=== PATIENT | female | born 1970 | race American Indian/Alaskan Native ===

== ENCOUNTER 2021-05-09 07:46 | Day surgery (SDC) | payer MEDICARE ==
[2021-05-09] MEDS ORDERED: SODIUM CHLORIDE 0.9% 500 ML 500 ML IV SCH (09:00)
--- NOTE | 2021-05-09 09:41 | Short Stay Summary ---
Short Stay Documentation Date of service: 05/09/21 Narrative H&P: The patient is a 51-year-old female with a history of end-stage renal disease who is currently on hemodialysis through a right arm arteriovenous graft. She presents with complaints of a thrombosed arteriovenous graft and is in need of a diagnostic. Kyle with possible intervention. She denies any history of prolonged bleeding or pain during dialysis. She has been given the risk, benefits, and alternative procedures and has consented to the procedure. - History H&P: obtained from office Past Medical History: anemia, diabetes, dialysis, ESRD, hypertension, hyperlipidemia, other (asthma) Past Surgical History: Other (Creation of right arm AVG, Creation of Left Arm AVG) - Allergies and Medications Current Medications: Allergies morphine Allergy (Verified 05/09/21 08:21) Itching Active Medications Sodium Chloride (Nacl 0.9% 500 Ml) 500 mls @ 50 mls/hr IV DIRECT SOLEDAD - Physical exam General appearance: no acute distress Lungs: Normal air movement Heart: Regular rate Gastrointestinal: normal Female Genitourinary: deferred Rectal Exam: deferred Extremities: abnormal (Right Arm AV Graft without pulse or thrill) - Brief post op/procedure progress note Date of procedure: 05/09/21 Pre-op diagnosis: Complications of Dialysis Access Post-op diagnosis: same Procedure: 1. Access Right Arm Arteriovenous Graft with 7 Bulgarian Sheath Venous 2. Access Right Arm Arteriovenous Graft with 6 Bulgarian Sheath Arterial 3. Diagnostic Fistulagram with Central Venogram 4. Percutaneous Mechanical Thrombectomy of Right Arm Arteriovenous Graft with Prospecting Driller Helper Device, 6 Bulgarian MP Guide Catheter, and Yjtt-hkg-Phxs Luanne 5. Angioplasty of Right Arm Arteriovenous Graft with 8 x 80 [place] Balloon in the Venous Outflow and 9 x 60 [place] Balloon in the Arterial Inflow 6. Catheter in Right Axillary Artery 7. Diagnostic Right Upper Extremity Angiogram 8. Radiologic Supervision with Interpretation 9. Monitored Moderate Sedation (Total Anesthesia Time: 56 Minutes) Anesthesia: local, other (Monitored Moderate Sedation) Surgeon: KEON DURANT Estimated blood loss: minimal Pathology: none Condition: stable - Disposition Condition at discharge: Good Disposition: 01 HOME / SELF CARE / HOMELESS Short Stay Discharge Plan Activity: other (No heavy lifting with right arm. Remove the sutures by pulling the longer of the 2 strings in dialysis tomorrow.) Wound: remove dressing (Tomorrow at dialysis) Forms: AVG Arteriogram D/Celioruction
[2021-05-09] MEDS ORDERED: HEPARIN/NS 5000 UNIT/500ML 1,000 ML IR ONE (11:30)
[2021-05-09] MEDS ORDERED: LIDOCAINE (2%) 20 MG/1 ML VIAL 20 ML MDV INFILTRATI ONE (11:31)
[2021-05-09] MEDS: fentaNYL 100 MCG/2 ML INJ ONE ×3 (12:05→12:20)
[2021-05-09] MEDS: MIDAZOLAM 2 MG/2 ML INJ ONE ×4 (12:05→12:28)
[2021-05-09] MEDS ORDERED: HEPARIN 10,000 UNITS/10 ML VIAL ONE ×2 (12:13→12:57)
[2021-05-09] MEDS ORDERED: fentaNYL 100 MCG/2 ML INJ ONE (12:43)
[2021-05-09 14:09] VITALS: BP 153/72
--- NOTE | 2021-05-09 15:38 | Operative Report ---
Operative Report Operative Report: Date of Procedure: 05/09/2021 Pre-operative Diagnosis: Complications of Dialysis Access Post-operative Diagnosis: Same Procedure(s): 1. Ultrasound-Guided Access Right Arm Arteriovenous Graft with 7 Malagasy Sheath Venous 2. Access Right Arm Arteriovenous Graft with 6 Malagasy Sheath Arterial 3. Diagnostic Fistulagram with Central Venogram 4. Percutaneous Mechanical Thrombectomy of Right Arm Arteriovenous Graft with Shelver Device, 6 Malagasy MP Guide Catheter, and Zdrk-riu-Ouzi Luanne 5. Angioplasty of Right Arm Arteriovenous Graft with 8 x 80 [place] Balloon in the Venous Outflow and 9 x 60 [place] Balloon in the Arterial Inflow 6. Catheter in Right Axillary Artery 7. Diagnostic Right Upper Extremity Angiogram 8. Radiologic Supervision with Interpretation 9. Monitored Moderate Sedation (Total Anesthesia Time: 56 Minutes) Surgeon: Tyrese Ngo M.D. Alliance Consultant: Tamara Anesthesia: Local/Monitored Moderate Sedation Total Anesthesia Time: 56 Minutes EBL: Minimal Counts: Correct Complications: None Condition: Stable Specimen: None Indication: The patient is a 51-year-old female with a history of end-stage renal disease who is currently on hemodialysis through a right arm loop graft. She presented with a thrombosed graft and requires a diagnostic fistulogram with possible intervention. She was given the risk, benefits, and alternative procedures and consented to the procedure. Angiographic Findings: The diagnostic fistulogram revealed thrombus throughout the graft. The graft was diffusely stenotic with stenosis ranging from 50 to 75%. There was thrombus extending into the distal axillary vein with approximately 75% stenosis of the axillary vein. The central venous system was patent without evidence of flow- limiting stenosis. The diagnostic right upper extremity angiogram reveals that the patient's graft originates from a high takeoff of the radial artery. There was thrombus throughout the arterial inflow of the graft. There was approximately 70% stenosis of the arterial inflow of the graft including the arterial anastomosis. After intervention there was no evidence of distal emboli at the completion of the case. There was a small amount of residual thrombus at the arterial inflow as well as a small amount and a branch of the axillary vein. The graft was patent with approximately 20% stenosis within a small area of the cannulation zone near the venous outflow however the remainder of the graft appeared to be patent with approximately 15% residual stenosis. The axillary vein was patent with less than 15% residual stenosis. Description of Procedure: The patient was brought to the [facility] and laid in supine position. After timeout was performed the right arm was prepped and draped in normal sterile fashion. Ultrasound was used to identify the graft, near the arterial anastomosis, and lidocaine was used to anesthetize the skin and soft tissue overlying the graft. A 21-gauge micropuncture needle was used to access the graft towards the venous outflow using ultrasound guidance. A 0.018 micropuncture wire was advanced to the graft and after removing the needle a 7 Malagasy sheath was placed by Seldinger technique. A diagnostic fistulogram central venogram was then performed with the previously described findings. I advanced a vertebral catheter and 0.035 Bentson wire through the graft and into the central venous system. At this point I systemically heparinized the patient with 5000 units of heparin IV. I used the cell cleaner device to morcellate the thrombus within the graft and axillary vein and then used a 6 Malagasy multipurpose catheter to aspirate the thrombus. The follow-up fistulogram revealed minimal residual thrombus however there were multiple areas of stenosis throughout the graft and axillary vein. I reinserted the Bentson wire and performed angioplasty of the areas of stenosis using an 8 x 80 [place] Balloon which resulted in less than 15% residual stenosis throughout the majority of the graft however there was a short segment which had approximately 20% residual stenosis secondary to continuous access in this area. I then anesthetized the skin and soft tissue overlying the graft, near the venous outflow, and accessed the graft using a 21-gauge micropuncture needle towards the arterial inflow. I advanced a 0.018 micropuncture wire into the graft and after removing the needle placed a 6 Malagasy sheath by secondary technique. I advanced the Bentson wire vertebral catheter into the axillary artery and performed a diagnostic angiogram with the previously described findings. I reinserted the Bentson wire and then advanced an [id number] Luanne into the axillary artery, over the wire, and then after inflating the balloon pulled the Luanne back into the graft pulling the plug of thrombus within the arterial inflow back into the graft. I then used the 6 Malagasy multipurpose guide catheter to aspirate thrombus from the arterial inflow of the graft. I advanced a Bentson wire back into the axillary artery and then performed angioplasty of the arterial inflow of the graft using a 9 x 60 [place] Balloon which resulted in less than 15% residual stenosis, throughout the arterial inflow of the graft, however there was some residual thrombus within the arterial inflow of the graft. I advanced a 6 Malagasy multipurpose guide catheter and was able to aspirate the majority of the residual thrombus however a small amount remained on either the anterior posterior wall however this was not flow-limiting. I readvanced the vertebral catheter into the axillary artery and performed a final angiogram which revealed no evidence of distal thrombus, brisk flow of contrast throughout the graft, a small amount of residual thrombus within the arterial inflow, the areas of stenosis as previously described, and a small amount of thrombus within a segment of the axillary vein. At this point I will catheters and wires were removed and 2-0 Ethilon slipknot fashion was used to close each entry site after removing the sheath. Sterile dressings were then applied to the entry sites and the patient was taken to the recovery area in stable condition.
== END 2021-05-09 14:30 | disposition home or self-care (01) ==
LOC: CATHLABREC 07:46
PROVIDERS: ATTEND Surgery Vascular Surgery
DX: T82.868A Thrombosis due to vascular prosthetic devices, implants and grafts, initial encounter (principal); N18.6 End stage renal disease; Z87.891 Personal history of nicotine dependence; Z79.899 Other long term (current) drug therapy; Z98.890 Other specified postprocedural states; Y83.8 Other surgical procedures as the cause of abnormal reaction of the patient, or of later complication, without mention of misadventure at the time of the procedure
CPT/HCPCS: 36415; 36905; 80048; 99156; 99157; C1725; C1757; C1769; C1887; C1894; J1644; J2250; J3010; J3490; J7040; Q9967

== ENCOUNTER 2021-12-31 09:41 | Day surgery (SDC) | payer MEDICARE ==
[2021-12-31] MEDS ORDERED: SODIUM CHLORIDE 0.9% 500 ML 500 ML IV SCH (11:00)
--- NOTE | 2021-12-31 11:24 | Short Stay Summary ---
Short Stay Documentation Date of service: 12/31/21 Narrative H&P: The patient is a 51-year-old female with a history of end-stage renal disease who was on hemodialysis through a right arm arteriovenous graft. She presents with complaints of "pulling clots" while on dialysis and requires a diagnostic fistulogram with possible intervention. She was given the risk, benefits, and alternative procedures and consented to the procedure. - History Past Medical History: anemia, diabetes, dialysis, ESRD, hypertension, hyperlipidemia Past Surgical History: Other (Creation of right arm arteriovenous graft, multiple percutaneous mechanical thrombectomy of left arm AV graft) Social history: no significant social history - Allergies and Medications Current Medications: Allergies morphine Allergy (Verified 12/31/21 10:25) Itching nickel Allergy (Verified 12/31/21 10:53) Rash Home Medications Medication Instructions Recorded Confirmed Last Taken Type Apixaban [Eliquis] 5 mg PO BID 12/31/21 12/31/21 12/30/21 History 5 mg AtorvaSTATin [Lipitor] 40 mg PO DAILY 12/31/21 12/31/21 12/30/21 History 40 mg FLUoxetine [PROzac] 3 tab PO DAILY 12/31/21 12/31/21 12/30/21 History 3 tab Gabapentin 300 mg PO BID 12/31/21 12/31/21 12/30/21 History 300 mg HYDROcodone/APAP 5-325 [Morris 1 tab PO PRN PRN 12/31/21 12/31/21 12/26/21 History 5-325 mg TAB] 1 tab Insulin NPH Human Isophane 15 unit SQ HS 12/31/21 12/31/21 12/30/21 History [HumuLIN N] 15 units Insulin NPH Human Isophane 18 unit SQ QAM 12/31/21 12/31/21 12/30/21 History [Humulin N] 18 units Metoprolol [Lopressor TAB] 100 mg PO DAILY 12/31/21 12/31/21 12/31/21 07:00 History 100 mg NIFEdipine [Nifedipine ER] 60 mg PO BID 12/31/21 12/31/21 12/31/21 07:00 History 60 mg Ondansetron [Zofran ODT TAB] 4 mg PO PRN PRN 12/31/21 12/31/21 12/29/21 History 4 mg Pantoprazole [Protonix TAB] 40 mg PO BID 12/31/21 12/31/21 12/30/21 History 40 mg Sevelamer Carbonate [Renvela] 3 tab PO AC 12/31/21 12/31/21 12/30/21 History 3 tab hydrALAZINE [Apresoline TAB] 10 mg PO BID 12/31/21 12/31/21 12/31/21 07:00 History 10 mg Active Medications Sodium Chloride (Nacl 0.9% 500 Ml) 500 mls @ 50 mls/hr IV DIRECT SOLEDAD - Physical exam General appearance: no acute distress Lungs: Normal air movement Heart: Regular rate Gastrointestinal: normal Female Genitourinary: deferred Rectal Exam: deferred Extremities: abnormal (Right arm arteriovenous graft with palpable thrill and slight pulsatility) - Brief post op/procedure progress note Date of procedure: 12/31/21 Pre-op diagnosis: Complications of Dialysis Access Post-op diagnosis: same Procedure: 1. Access Right Arm AV Graft with 7 Japanese Sheath Venous 2. Diagnostic Fistulagram with Central Venogram 3. Angioplasty of Right Arm Arteriovenous Graft with 8 x 100 [place] Balloon 4. Radiologic Supervision with Interpretation 5. Monitored Moderate Sedation (Total Anesthesia Time: 12 Minutes) Anesthesia: local, other (Monitored Moderate Sedation) Surgeon: KEON DURANT Estimated blood loss: minimal Pathology: none Condition: stable - Disposition Condition at discharge: Good Disposition: 01 HOME / SELF CARE / HOMELESS Short Stay Discharge Plan Activity: no restrictions Wound: remove dressing (In 24 hours)
[2021-12-31] MEDS ORDERED: SODIUM CHLORIDE 0.9% 500 ML 500 ML ONE (11:36)
[2021-12-31] MEDS ORDERED: MIDAZOLAM 2 MG/2 ML INJ ONE (11:54)
[2021-12-31] MEDS ORDERED: fentaNYL 100 MCG/2 ML INJ ONE (11:55)
[2021-12-31] MEDS ORDERED: LIDOCAINE (2%) 20 MG/1 ML VIAL 20 ML MDV INFILTRATI ONE (11:59)
[2021-12-31] MEDS ORDERED: HEPARIN/NS 5000 UNIT/500ML 500 ML IR ONE (12:05)
--- NOTE | 2021-12-31 12:36 | Operative Report ---
Operative Report Operative Report: Date of Procedure: 12/31/2021 Pre-operative Diagnosis: Complications of Dialysis Access Post-operative Diagnosis: Same Procedure(s): 1. Access Right Arm AV Graft with 7 Australian Sheath Venous 2. Diagnostic Fistulagram with Central Venogram and Arterial Reflux 3. Angioplasty of Right Arm Arteriovenous Graft with 8 x 100 [place] Balloon 4. Radiologic Supervision with Interpretation 5. Monitored Moderate Sedation (Total Anesthesia Time: 16 Minutes) Surgeon: Tyrese Ngo M.D. Medical Physics Researcher: None Anesthesia: Local/Monitored Moderate Sedation Total Anesthesia Time: 12 Minutes EBL: Minimal Counts: Correct Complications: None Condition: Stable Specimen: None Indication: The patient is a 51-year-old female with a history of end-stage renal disease who is currently on hemodialysis through a right arm arteriovenous graft. She presents with complaints of "pulling clots" while on dialysis. She is in need of a diagnostic fistulogram and possible intervention. She was given the risk, benefits, and alternative procedures and consented to the procedure. Angiographic Findings: The diagnostic fistulogram revealed the graft including the cannulation zone was patent without evidence of flow-limiting stenosis. There was approximately 75 to 80% stenosis in the axillary vein. The central venous system was patent without evidence of flow-limiting stenosis. Contrast was refluxed into the arterial inflow which demonstrated approximately 35 to 40% stenosis near the arterial anastomosis however this was not flow-limiting. After intervention the venous outflow of the fistula was patent with less than 15% residual stenosis. Description of Procedure: The patient was brought to the [facility] and laid in supine position. After timeout was performed her right arm was prepped and draped in normal sterile fashion. Lidocaine was used anesthetize the skin and soft tissue, overlying the graft, near the arterial inflow and a 21-gauge micropuncture needle was used access the graft towards the venous outflow. A 0.018 micropuncture wire was advanced into the graft and after removing the needle a 7 Australian sheath was placed by Seldinger technique. A diagnostic fistulogram with central venogram was then performed with the previously described findings. Pressure was held on the graft to allow contrast refluxed back into the arterial inflow with the previously described findings. I advanced a 0.035 J-wire into the central venous system and then performed angioplasty of the areas of stenosis using an 8 x 100 [place] Balloon. The follow-up fistulogram demonstrated less than 15% residual stenosis and brisk flow of contrast throughout the system. At that point the balloon and wire were removed followed by removing the sheath. Manual pressure was held until hemostasis was achieved. Once hemostasis was achieved a sterile dressing was applied and the patient was transported to the recovery area in stable condition.
[2021-12-31 13:02] VITALS: BP 134/66
== END 2021-12-31 13:15 | disposition home or self-care (01) ==
LOC: CATHLABREC 09:41
PROVIDERS: ATTEND Surgery Vascular Surgery
DX: T82.898A Other specified complication of vascular prosthetic devices, implants and grafts, initial encounter (principal); I12.0 Hypertensive chronic kidney disease with stage 5 chronic kidney disease or end stage renal disease; E11.22 Type 2 diabetes mellitus with diabetic chronic kidney disease; N18.6 End stage renal disease; K21.9 Gastro-esophageal reflux disease without esophagitis; M19.90 Unspecified osteoarthritis, unspecified site; F32.9 Major depressive disorder, single episode, unspecified; F41.9 Anxiety disorder, unspecified; D64.9 Anemia, unspecified; Z88.5 Allergy status to narcotic agent; Z88.8 Allergy status to other drugs, medicaments and biological substances; Z79.899 Other long term (current) drug therapy; Z79.4 Long term (current) use of insulin; Z87.891 Personal history of nicotine dependence; Z98.890 Other specified postprocedural states; Y82.8 Other medical devices associated with adverse incidents; Y92.89 Other specified places as the place of occurrence of the external cause
CPT/HCPCS: 36415; 36902; 80048; 99156; C1725; C1894; J1644; J2250; J3010; J3490; J7040; 36905; Q9967